=== PATIENT | female | born 1930 | race Caucasian/White ===

== ENCOUNTER 2018-10-15 07:55 | Inpatient (IN) | payer MEDICARE, MEDICAID ==
[2018-10-15] VITALS (8 sets, daily range): BP systolic 119–165; BP diastolic 47–105
[~2018-10-15] VITALS: Ht 165.1 cm; Wt 95.3 kg
[2018-10-15] MEDS ORDERED: Isovue-300 100ml vial INJ PRN (08:15)
[2018-10-15 08:37] LABS: APPEARANCE,URINE CLEAR; BILIRUBIN, URINE NEGATIVE (NEGATIVE); COLOR,URINE PALE YELLOW; GLUCOSE, URINE (UA) NEGATIVE (NEGATIVE); KETONES,URINE NEGATIVE (NEGATIVE); LEUKOCYTE ESTERASE ,URINE NEGATIVE (NEGATIVE); NITRITE,URINE NEGATIVE (NEGATIVE); PH,URINE 7 (4.5-8.0); PROTEIN,URINE NEGATIVE (NEGATIVE); UROBILINOGEN,URINE NORMAL MG/DL (0.0-1.0)
[2018-10-15 08:42] LABS: BASOPHILS % (AUTO) 1.5 % (0.0-2.0); EOSINOPHILS % (AUTO) 1.9 % (0.0-3.0); HEMATOCRIT 38.3 % (37.0-47.0); HEMOGLOBIN 12.8 G/DL (12.0-16.0); LYMPHOCYTES % (AUTO) 42.5 % (20.0-45.0); MEAN CORPUSCULAR VOLUME 92 FL (80-99); MONOCYTES % (AUTO) 6.7 % (1.0-10.0); NEUTROPHILS % (AUTO) 47.4 % (45.0-75.0); PLATELET COUNT 210 K/UL (150-450); RED BLOOD COUNT 4.16 M/UL (4.20-5.40); RED CELL DISTRIBUTION WIDTH 11.9 % (11.6-14.8); WHITE BLOOD COUNT 5.1 K/UL (4.8-10.8)
[2018-10-15 09:04] LABS: ALANINE AMINOTRANSFERASE 44 U/L (12-78); ALBUMIN 3.7 G/DL (3.4-5.0); ALBUMIN/GLOBULIN RATIO 0.8 (1.0-2.7); ALKALINE PHOSPHATASE 102 U/L (46-116); ANION GAP 5 mmol/L (5-15); BILIRUBIN,TOTAL 0.5 MG/DL (0.2-1.0); BLOOD UREA NITROGEN 17 mg/dL (7-18); CALCIUM 10.5 MG/DL (8.5-10.1); CARBON DIOXIDE 33 MMOL/L (21-32); CHLORIDE 98 MMOL/L (98-107); POTASSIUM 3.9 MMOL/L (3.5-5.1); SODIUM 136 MMOL/L (136-145)
[2018-10-15 09:13] LABS: ASPARTATE AMINO TRANSFERASE 42 U/L (15-37)
[2018-10-15] MEDS ORDERED: COLCRYS0.6 M1 PO (09:18)
[2018-10-15] MEDS ORDERED: LOSARTAN POTASS50 MG ORAL (09:18)
[2018-10-15] MEDS ORDERED: BUSPIRONE HCL10 M1 ORAL (09:18)
[2018-10-15] MEDS ORDERED: ALLOPURINOL100 M1 ORAL (09:18)
[2018-10-15] MEDS ORDERED: AMLODIPINE BESYL5 MG ORAL (09:18)
[2018-10-15] MEDS ORDERED: FUROSEMIDE20 M1 ORAL (09:18)
[2018-10-15] MEDS ORDERED: VOLTAREN100 G1 TP (09:18)
[2018-10-15] MEDS ORDERED: POTASSIUM CHLO10 ME3 ORAL (09:18)
[2018-10-15] MEDS ORDERED: KLONOPIN0.5 MG ORAL (09:18)
[2018-10-15] MEDS ORDERED: ASPIRIN81 MG ORAL (09:18)
[2018-10-15] MEDS ORDERED: ESCITALOPRAM OX10 MG ORAL (09:18)
[2018-10-15] MEDS ORDERED: CHLORTHALIDONE25 MG ORAL (09:18)
[2018-10-15] MEDS ORDERED: TRAMADOL HCL50 MG ORAL (09:18)
[2018-10-15] MEDS ORDERED: DEXILANT60 MG ORAL (09:18)
[2018-10-15] MEDS ORDERED: ZOCOR20 M1 ORAL (09:18)
[2018-10-15] MEDS ORDERED: LEVOTHYROXINE75 MCG ORAL (09:18)
[2018-10-15] MEDS ORDERED: CATAPRES0.1 MG ORAL (09:18)
[2018-10-15] MEDS ORDERED: MECLIZINE HCL25 MG ORAL (09:18)
--- NOTE | 2018-10-15 10:08 | Diagnostic Imaging Report ---
Indication: Abdominal pain Technique: CT of the abdomen and pelvis utilizing automated exposure control with intravenous contrast. Venous scanning performed. Axial, sagittal and coronal reformats presented. CT dose: Total DLP 1014.15 mGycm; CTDI vol 17.93 mGy Comparison: None Findings: Dependent atelectasis noted in the lung bases. Heart appears enlarged. No pericardial effusion is identified. There are aortic valvular calcifications. Slight asymmetry of the partially visualized breast tissue, more pronounced on the right with approximately 8mm rounded hyperdense focus in the right breast (image #12). Liver is normal in size and contour. There is cholelithiasis. No gallbladder wall thickening or CT evident gallstones are identified. No pericholecystic inflammatory changes. No biliary ductal dilatation. Spleen, adrenal glands and pancreas unremarkable. Kidneys are symmetric in size. Nonspecific very mild perinephric stranding is noted. A subcentimeter low-attenuation lesion is noted in the mid pole the left kidney most likely representing a cyst however lesion is too small for definitive characterization. There is no hydronephrosis or urinary tract stone bilaterally. Bladder is unremarkable. Patient is status post hysterectomy. There is no free intraperitoneal air or fluid. There is no evidence of bowel obstruction. There is a small hiatal hernia. Apparent thickening of the wall of the stomach may related to underdistention versus gastritis. There is colonic diverticulosis without evidence to suggest acute diverticulitis. The abdominal aorta is normal in caliber with scattered atherosclerotic calcification. There is a small fat-containing umbilical hernia. There is no pathologically enlarged lymphadenopathy. A small fat-containing left inguinal hernia is also noted. There are multilevel degenerative changes of the thoracolumbar spine with vacuum disc phenomenon at L4-5 and L5-S1. There is grade 1 anterolisthesis of L5 on S1 which is likely chronic and degenerative in etiology. IMPRESSION: * Cholelithiasis without CT evidence to suggest acute cholecystitis. Further evaluation with ultrasound or HIDA can be as clinically indicated. * Apparent thickening of the wall of stomach which may be related to underdistention versus gastritis. * Small hiatal hernia. * Colonic diverticulosis without evidence of acute diverticulitis. * No evidence of bowel obstruction. * Small fat-containing umbilical and left inguinal hernias. * Prominence of right-sided breast tissue with a approximately 8mm rounded dense lesion in the right breast. Correlation with breast exam recommended. Further imaging with mammography recommended as clinically indicated. The CT scanner at [facility] is accredited by the [employer] and the scans are performed using protocols designed to limit radiation exposure to as low as reasonably achievable to attain images of sufficient resolution adequate for diagnostic evaluation.
--- NOTE | 2018-10-15 10:52 | Emergency Room Report ---
History of Present Illness General Chief Complaint: Abdominal Pain Source: Patient, Caregiver Present Illness HPI The patient is accompanied by caregiver. History is primarily obtained from the caregiver. The patient has a history of dementia. The patient has a known history of gallstones. She had complained of abdominal pain for the past day in the upper abdomen. There is been no fever or chills. There is been no nausea or vomiting. There is been no dysuria or hematuria. There is no chest pain or short of breath. There are no other complaints. Allergies: Coded Allergies: No Known Allergies (Unverified , 10/15/18) Patient History Past Medical History: see triage record, HTN, other - Hx of gallstones Past Surgical History: hysterectomy Social History: Denies: smoking, alcohol use, drug use Reviewed Nursing Documentation: PMH: Agreed; PSxH: Agreed Nursing Documentation-PMH Past Medical History: No History, Except For Hx Hypertension: Yes Hx Cancer: Yes - hysterectomy Review of Systems All Other Systems: negative except mentioned in HPI Physical Exam Vital Signs Date Time Temp Pulse Resp B/P (MAP) Pulse Ox O2 Delivery O2 Flow Rate FiO2 10/15/18 07:59 97.9 53 23 165/80 99 Room Air Sp02 EP Interpretation: reviewed, normal General Appearance: no apparent distress, alert, GCS 15, non-toxic, obese Head: normocephalic, atraumatic Eyes: bilateral eye normal inspection, bilateral eye PERRL ENT: hearing grossly normal, normal pharynx, no angioedema, normal voice Neck: full range of motion, supple/symm/no masses Respiratory: chest non-tender, lungs clear, normal breath sounds, no respiratory distress, no retraction, no accessory muscle use, speaking full sentences Cardiovascular #1: regular rate, rhythm, no edema Gastrointestinal: normal bowel sounds, soft, non-distended, no guarding, no rebound, tenderness - TTP in the episgastrium Rectal: deferred Musculoskeletal: back normal, normal range of motion, non-tender Neurologic: alert, responsive, motor strength/tone normal, sensory intact, speech normal Psychiatric: mood/affect normal, no suicidal/homicidal ideation Skin: warm/dry, well hydrated, other - See RN skin exam Medical Decision Making Diagnostic Impression: Primary Impression: Abdominal pain Additional Impressions: Breast mass Acute gastritis Gallstones ER Course This patient has a clinical presentation consistent with gastritis and possibly symptomatic cholelithiasis. The location of the pain and history and physical examination is consistent with this. I considered other concerning differentials, to include appendicitis, cholecystitis, pancreatitis, perforated viscus, aortic aneurysm, and pyelonephritis to name a few. However, laboratory workup in combination with medical and surgical history and physical exam makes these unlikely at this time. Also reassuring, CT of the abdomen and pelvis was unremarkable. There were findings that could be gastritis. They were quadrant ultrasound did show gallstones but does not show any evidence of cholecystitis or choledocholithiasis. Laboratory workup is reassuring and unremarkable. Further discussion with the family and this patient has been unable to care for herself in her activities of daily living. The family states that she has ongoing pain and they are unable to care for her further. She is unable to care for her self at this time. She has ongoing gastritis. She is admitted for further evaluation and treatment and may need placement in a half-way facility and sent her acute symptoms are controlled. The patient is admitted for further evaluation and treatment. Laboratory Tests Test 10/15/18 08:23 White Blood Count 5.1 K/UL (4.8-10.8) Red Blood Count 4.16 M/UL (4.20-5.40) L Hemoglobin 12.8 G/DL (12.0-16.0) Hematocrit 38.3 % (37.0-47.0) Mean Corpuscular Volume 92 FL (80-99) Mean Corpuscular Hemoglobin 30.9 PG (27.0-31.0) Mean Corpuscular Hemoglobin Concent 33.5 G/DL (32.0-36.0) Red Cell Distribution Width 11.9 % (11.6-14.8) Platelet Count 210 K/UL (150-450) Mean Platelet Volume 6.7 FL (6.5-10.1) Neutrophils (%) (Auto) 47.4 % (45.0-75.0) Lymphocytes (%) (Auto) 42.5 % (20.0-45.0) Monocytes (%) (Auto) 6.7 % (1.0-10.0) Eosinophils (%) (Auto) 1.9 % (0.0-3.0) Basophils (%) (Auto) 1.5 % (0.0-2.0) Urine Color Pale yellow Urine Appearance Clear Urine pH 7 (4.5-8.0) Urine Specific [place] 1.010 (1.005-1.035) Urine Protein Negative (NEGATIVE) Urine Glucose (UA) Negative (NEGATIVE) Urine Ketones Negative (NEGATIVE) Urine Blood 1+ (NEGATIVE) H Urine Nitrite Negative (NEGATIVE) Urine Bilirubin Negative (NEGATIVE) Urine Urobilinogen Normal MG/DL (0.0-1.0) Urine Leukocyte Esterase Negative (NEGATIVE) Urine RBC 0-2 /HPF (0 - 2) Urine WBC 0-2 /HPF (0 - 2) Urine Squamous Epithelial Cells Moderate /LPF (NONE/OCC) H Urine Bacteria Few /HPF (NONE) Sodium Level 136 MMOL/L (136-145) Potassium Level 3.9 MMOL/L (3.5-5.1) Chloride Level 98 MMOL/L (98-107) Carbon Dioxide Level 33 MMOL/L (21-32) H Anion Gap 5 mmol/L (5-15) Blood Urea Nitrogen 17 mg/dL (7-18) Creatinine 1.0 MG/DL (0.55-1.30) Estimate Glomerular Filtration Rate mL/min (>60) Glucose Level 87 MG/DL (74-106) Calcium Level 10.5 MG/DL (8.5-10.1) H Total Bilirubin 0.5 MG/DL (0.2-1.0) Aspartate Amino Transferase (AST) 42 U/L (15-37) H Alanine Aminotransferase (ALT) 44 U/L (12-78) Alkaline Phosphatase 102 U/L (46-116) Troponin I 0.000 ng/mL (0.000-0.056) Total Protein 8.1 G/DL (6.4-8.2) Albumin 3.7 G/DL (3.4-5.0) Globulin 4.4 g/dL Albumin/Globulin Ratio 0.8 (1.0-2.7) L Lipase 171 U/L (73-393) Laboratory Tests Test 10/15/18 08:23 White Blood Count 5.1 K/UL (4.8-10.8) Red Blood Count 4.16 M/UL (4.20-5.40) L Hemoglobin 12.8 G/DL (12.0-16.0) Hematocrit 38.3 % (37.0-47.0) Mean Corpuscular Volume 92 FL (80-99) Mean Corpuscular Hemoglobin 30.9 PG (27.0-31.0) Mean Corpuscular Hemoglobin Concent 33.5 G/DL (32.0-36.0) Red Cell Distribution Width 11.9 % (11.6-14.8) Platelet Count 210 K/UL (150-450) Mean Platelet Volume 6.7 FL (6.5-10.1) Neutrophils (%) (Auto) 47.4 % (45.0-75.0) Lymphocytes (%) (Auto) 42.5 % (20.0-45.0) Monocytes (%) (Auto) 6.7 % (1.0-10.0) Eosinophils (%) (Auto) 1.9 % (0.0-3.0) Basophils (%) (Auto) 1.5 % (0.0-2.0) Urine Color Pale yellow Urine Appearance Clear Urine pH 7 (4.5-8.0) Urine Specific [place] 1.010 (1.005-1.035) Urine Protein Negative (NEGATIVE) Urine Glucose (UA) Negative (NEGATIVE) Urine Ketones Negative (NEGATIVE) Urine Blood 1+ (NEGATIVE) H Urine Nitrite Negative (NEGATIVE) Urine Bilirubin Negative (NEGATIVE) Urine Urobilinogen Normal MG/DL (0.0-1.0) Urine Leukocyte Esterase Negative (NEGATIVE) Urine RBC 0-2 /HPF (0 - 2) Urine WBC 0-2 /HPF (0 - 2) Urine Squamous Epithelial Cells Moderate /LPF (NONE/OCC) H Urine Bacteria Few /HPF (NONE) Sodium Level 136 MMOL/L (136-145) Potassium Level 3.9 MMOL/L (3.5-5.1) Chloride Level 98 MMOL/L (98-107) Carbon Dioxide Level 33 MMOL/L (21-32) H Anion Gap 5 mmol/L (5-15) Blood Urea Nitrogen 17 mg/dL (7-18) Creatinine 1.0 MG/DL (0.55-1.30) Estimate Glomerular Filtration Rate mL/min (>60) Glucose Level 87 MG/DL (74-106) Calcium Level 10.5 MG/DL (8.5-10.1) H Total Bilirubin 0.5 MG/DL (0.2-1.0) Aspartate Amino Transferase (AST) 42 U/L (15-37) H Alanine Aminotransferase (ALT) 44 U/L (12-78) Alkaline Phosphatase 102 U/L (46-116) Total Protein 8.1 G/DL (6.4-8.2) Albumin 3.7 G/DL (3.4-5.0) Globulin 4.4 g/dL Albumin/Globulin Ratio 0.8 (1.0-2.7) L Lipase 171 U/L (73-393) EKG Diagnostic Results Rate: bradycardiac - S.bradycardia w/ first degree av block. Rhythm: other - S.bradycardia ST Segments: no acute changes Rhythm Strip Diag. Results EP Interpretation: yes Rate: 50's Rhythm: no PVC's, no ectopy, other - S.bradycardia CT/MRI/US Diagnostic Results CT/MRI/US Diagnostic Results : Imaging Test Ordered: CT abd/pelvis, US Abdomen Impression * Cholelithiasis without CT evidence to suggest acute cholecystitis. Further evaluation with ultrasound or HIDA can be as clinically indicated. * Apparent thickening of the wall of stomach which may be related to underdistention versus gastritis. * Small hiatal hernia. * Colonic diverticulosis without evidence of acute diverticulitis. * No evidence of bowel obstruction. * Small fat-containing umbilical and left inguinal hernias. * Prominence of right-sided breast tissue with a approximately 8mm rounded dense lesion in the right breast. Correlation with breast exam recommended. Further imaging with mammography recommended as clinically indicated. US abdomen: Cholelithiasis without any evidence of choledocho-cholelithiasis or cholecystitis. See official report in the electronic medical record. Last Vital Signs Date Time Temp Pulse Resp B/P (MAP) Pulse Ox O2 Delivery O2 Flow Rate FiO2 10/15/18 08:43 97.9 55 23 165/80 99 Room Air Disposition: ADMITTED INPATIENT Condition: Stable Referrals: NOT CHOSEN IPA/,REFERRING (PCP) Sera Woods DO Oct 15, 2018 10:52
--- NOTE | 2018-10-15 12:00 | Diagnostic Imaging Report ---
Indication: Abdominal pain Technique: Multiplanar grayscale and duplex Doppler imaging of the abdomen Comparison: Concurrent CT of the abdomen and pelvis Findings: Imaged portions of the pancreas grossly unremarkable. Liver is normal in size. Echogenicity is homogeneous. No focal hepatic mass lesion is appreciated sonographically. Hepatic contour appears smooth. The portal vein appears patent with normal direction of flow. There is cholelithiasis. Gallbladder is not distended. Gallbladder wall is not thickened. There is no pericholecystic fluid. Sonographic Obrien sign reported as negative. No intrahepatic biliary ductal dilatation is appreciated. The common bile duct is normal in caliber measuring 5 mm in diameter. Kidneys demonstrate normal echogenicity. There is no hydronephrosis or sonographically appreciable renal stone bilaterally. A subcentimeter anechoic structures noted in the lower pole the left kidney most likely representing a simple cyst. There is lobulated contour of the bilateral kidneys. Spleen is normal in size. Imaged portions of the abdominal aorta and IVC normal caliber. No ascites is demonstrated. IMPRESSION: Cholelithiasis. No sonographic evidence to suggest an acute cholecystitis. Sonographic Obrien sign reported as negative.
--- NOTE | 2018-10-15 14:50 | History & Physical ---
History and Physical History & Physicial HP dictated # [id number] Vipul Alford MD Oct 15, 2018 14:50
[2018-10-15] MEDS: BusPIRone 5mg Tab ORAL SCH (15:00)
[2018-10-15] MEDS: Allopurinol 100mg Tab ORAL SCH (15:44)
[2018-10-15] MEDS: Aspirin Baby 81mg ORAL SCH (15:45)
[2018-10-15] MEDS: clonazePAM 0.5mg tab ORAL SCH (15:45)
[2018-10-15] MEDS: Heparin 5000 units/ml inj SUBQ SCH (15:47)
[2018-10-15] MEDS ORDERED: Milk of Magnesia 30ml Ud ORAL PRN (16:30)
--- NOTE | 2018-10-15 17:30 | History and Physical Report ---
DATE OF ADMISSION: 10/15/2018 CHIEF COMPLAINT: Abdominal pain. HISTORY OF PRESENT ILLNESS: This is an 88-year-old [place] female, who does not speak German. History was obtained through a teacher asst. The patient apparently was complaining of abdominal pain. She was brought into the emergency room. She was found to have some gallstones with no evidence of cholecystitis. She was admitted for further workup. The patient has a history of dementia and poor historian. PAST MEDICAL HISTORY: Includes also history of hypertension. The patient is status post hysterectomy. Previous history of knee surgeries. MEDICATIONS: Reviewed in the EMR. SOCIAL HISTORY: No history of smoking or alcohol abuse. ALLERGIES: No known drug allergies. REVIEW OF SYSTEMS: Unobtainable. PHYSICAL EXAMINATION: GENERAL: The patient is an elderly female, in no acute distress. VITAL SIGNS: Blood pressure is 119/67, pulse 53, temperature 97.9, and respirations 23. HEENT: Neches conjunctivae. Anicteric sclerae. NECK: Supple. LUNGS: Clear to auscultation. HEART: S1, S2 without murmurs or rubs. ABDOMEN: Soft and nontender. EXTREMITIES: Bilateral edema. The patient has scars over the both knees from previous knee surgeries. LABORATORY FINDINGS: CBC shows a WBC of 5100, hematocrit 38.3, hemoglobin 12.8, and platelets 210,000. Chemistry panel shows a serum sodium 136, potassium 3.9, chloride 98, CO2 33, BUN 17, and creatinine 1. Calcium is 10.5. Troponin was negative. Lipase is 171. UA was negative. ASSESSMENT: This is an 88-year-old [place] female with history of dementia, who is admitted with abdominal pain, possibility of gallstone colic. The patient had also some elevated blood pressure this morning. PLAN: The patient will be admitted to med/surg. I started the patient on Protonix. If the pain continues further evaluation will be made by the HIDA scan to see if the patient has acute cholecystitis in which case the gallbladder has to be removed. Blood pressure medication will be adjusted. Vipul Alford M.D. DR: ALFONSO JOB#: [id number] CC:
[2018-10-16] VITALS: BP 103/53
[2018-10-16] MEDS: clonazePAM 0.5mg tab ORAL SCH ×4 (00:44→17:38)
[2018-10-16 04:00] VITALS: BP 141/82
[2018-10-16 08:00] VITALS: BP 137/63
[2018-10-16] MEDS: Allopurinol 100mg Tab ORAL SCH (09:06)
[2018-10-16] MEDS: BusPIRone 5mg Tab ORAL SCH (09:06)
[2018-10-16] MEDS: Losartan 50mg tab ORAL SCH (09:07)
[2018-10-16] MEDS: Aspirin Baby 81mg ORAL SCH (09:07)
[2018-10-16] MEDS: Heparin 5000 units/ml inj SUBQ SCH ×2 (09:08→21:28)
[2018-10-16 12:00] VITALS: BP 145/73
--- NOTE | 2018-10-16 13:37 | General Progress Note ---
Assessment/Plan Problem List: (1) Biliary colic ICD Codes: K80.50 - Calculus of bile duct without cholangitis or cholecystitis without obstruction SNOMED: 42143909 (2) Gallstones ICD Codes: K80.20 - Calculus of gallbladder without cholecystitis without obstruction SNOMED: 934081964 (3) Abdominal pain ICD Codes: R10.9 - Unspecified abdominal pain SNOMED: 42768498 (4) Acute gastritis ICD Codes: K29.00 - Acute gastritis without bleeding SNOMED: 87166354 (5) HTN (hypertension) ICD Codes: I10 - Essential (primary) hypertension SNOMED: 01195321 (6) Dementia ICD Codes: F03.90 - Unspecified dementia without behavioral disturbance SNOMED: 12132536 Plan: Continue with Protonix. Watch blood pressure closely. Follow labs Physical therapy Transfer to detention facility once stable Subjective Allergies: Coded Allergies: No Known Allergies (Unverified , 10/15/18) Subjective Patient is feeling better Objective Last 24 Hour Vital Signs Date Time Temp Pulse Resp B/P (MAP) Pulse Ox O2 Delivery O2 Flow Rate FiO2 10/16/18 12:00 98.1 58 17 145/73 (97) 98 10/16/18 09:07 137/63 10/16/18 09:07 64 137/63 10/16/18 09:00 Room Air 10/16/18 08:00 97.6 64 17 137/63 (87) 98 10/16/18 04:00 97.3 60 18 141/82 (101) 94 10/16/18 00:00 97.6 62 18 103/53 (70) 95 10/15/18 21:00 Room Air 10/15/18 20:00 97.1 60 18 153/105 (121) 95 10/15/18 18:00 58 146/73 (97) 10/15/18 16:00 99.1 56 17 163/78 (106) 99 10/15/18 15:46 58 165/92 10/15/18 14:45 Room Air 10/15/18 14:10 97.5 58 20 165/92 (116) 95 10/15/18 13:42 97.9 53 23 119/67 99 Room Air Intake and Output 10/15/18 10/16/18 19:00 07:00 Intake Total 500 ml 480 ml Balance 500 ml 480 ml Intake Oral 500 ml 480 ml # Voids 1 3 Height (Feet): 5 Height (Inches): 5.00 Weight (Pounds): 210 Cardiovascular: normal rate Respiratory/Chest: lungs clear Abdomen: soft Vipul lAford MD Oct 16, 2018 13:37
--- NOTE | 2018-10-16 13:39 | Cardiology Report ---
APPROVED REPORT EKG Measurement Heart [id number] VA 224P [id number] Sinus bradycardia with 1st degree AV block Otherwise normal ECG
[2018-10-16 16:00] VITALS: BP 147/70
[2018-10-16 20:00] VITALS: BP 118/55
[2018-10-17] VITALS: BP 107/64
[2018-10-17] MEDS: clonazePAM 0.5mg tab ORAL SCH ×4 (00:26→18:02)
[2018-10-17 04:00] VITALS: BP 106/55
[2018-10-17 08:00] VITALS: BP 140/90
[2018-10-17] MEDS: Allopurinol 100mg Tab ORAL SCH (08:28)
[2018-10-17] MEDS: Aspirin Baby 81mg ORAL SCH (08:28)
[2018-10-17] MEDS: Losartan 50mg tab ORAL SCH (08:29)
[2018-10-17] MEDS: BusPIRone 5mg Tab ORAL SCH (08:29)
[2018-10-17] MEDS: Heparin 5000 units/ml inj SUBQ SCH ×2 (08:32→20:37)
[2018-10-17 12:00] VITALS: BP 156/91
--- NOTE | 2018-10-17 15:25 | General Progress Note ---
Assessment/Plan Problem List: (1) Biliary colic ICD Codes: K80.50 - Calculus of bile duct without cholangitis or cholecystitis without obstruction SNOMED: 80792117 (2) Gallstones ICD Codes: K80.20 - Calculus of gallbladder without cholecystitis without obstruction SNOMED: 703586568 (3) Abdominal pain ICD Codes: R10.9 - Unspecified abdominal pain SNOMED: 50745379 (4) Acute gastritis ICD Codes: K29.00 - Acute gastritis without bleeding SNOMED: 02540875 (5) HTN (hypertension) ICD Codes: I10 - Essential (primary) hypertension SNOMED: 67407860 (6) Dementia ICD Codes: F03.90 - Unspecified dementia without behavioral disturbance SNOMED: 61700789 Plan: watch BP cont with current meds DC tomorrow Subjective Allergies: Coded Allergies: No Known Allergies (Unverified , 10/15/18) Subjective Patient is feeling better Objective Last 24 Hour Vital Signs Date Time Temp Pulse Resp B/P (MAP) Pulse Ox O2 Delivery O2 Flow Rate FiO2 10/17/18 12:00 97.6 64 20 156/91 (112) 95 10/17/18 09:00 Room Air 10/17/18 08:29 140/90 10/17/18 08:28 65 140/90 10/17/18 08:00 98.2 65 20 140/90 (107) 96 10/17/18 04:00 98.5 59 21 106/55 (72) 94 10/17/18 00:00 98.6 68 17 107/64 (78) 98 10/16/18 21:00 Room Air 10/16/18 20:00 97.3 63 18 118/55 (76) 95 10/16/18 16:00 98.3 59 17 147/70 (95) 98 Intake and Output 10/16/18 10/17/18 19:00 07:00 Intake Total 2000 ml 240 ml Balance 2000 ml 240 ml Intake Oral 2000 ml 240 ml # Voids 4 3 Height (Feet): 5 Height (Inches): 5.00 Weight (Pounds): 210 Cardiovascular: normal rate Respiratory/Chest: lungs clear Abdomen: soft Edema: 2+ Generalized Vipul Alford MD Oct 17, 2018 15:25
[2018-10-17 16:00] VITALS: BP 121/61
[2018-10-17 20:00] VITALS: BP 112/65
[2018-10-18] VITALS: BP 130/68
[2018-10-18] MEDS: clonazePAM 0.5mg tab ORAL SCH ×3 (00:26→12:23)
[2018-10-18 04:00] VITALS: BP 139/74
[2018-10-18 08:00] VITALS: BP 129/67
[2018-10-18] MEDS: Losartan 50mg tab ORAL SCH (08:45)
[2018-10-18] MEDS: BusPIRone 5mg Tab ORAL SCH (08:45)
[2018-10-18] MEDS: Aspirin Baby 81mg ORAL SCH (08:46)
[2018-10-18] MEDS: Allopurinol 100mg Tab ORAL SCH (08:46)
[2018-10-18] MEDS: Heparin 5000 units/ml inj SUBQ SCH (08:47)
--- NOTE | 2018-10-18 10:50 | General Progress Note ---
Assessment/Plan Problem List: (1) Biliary colic ICD Codes: K80.50 - Calculus of bile duct without cholangitis or cholecystitis without obstruction SNOMED: 99150126 (2) Gallstones ICD Codes: K80.20 - Calculus of gallbladder without cholecystitis without obstruction SNOMED: 215400129 (3) Abdominal pain ICD Codes: R10.9 - Unspecified abdominal pain SNOMED: 98554689 (4) Acute gastritis ICD Codes: K29.00 - Acute gastritis without bleeding SNOMED: 16441743 (5) HTN (hypertension) ICD Codes: I10 - Essential (primary) hypertension SNOMED: 04716816 (6) Dementia ICD Codes: F03.90 - Unspecified dementia without behavioral disturbance SNOMED: 92655074 Plan: Dc today Subjective Allergies: Coded Allergies: No Known Allergies (Unverified , 10/15/18) Subjective Patient is feeling better Objective Last 24 Hour Vital Signs Date Time Temp Pulse Resp B/P (MAP) Pulse Ox O2 Delivery O2 Flow Rate FiO2 10/18/18 09:00 Room Air 10/18/18 08:46 66 129/67 10/18/18 08:45 129/67 10/18/18 08:00 98.3 66 18 129/67 (87) 96 10/18/18 04:00 97.9 65 18 139/74 (95) 96 10/18/18 00:00 97.5 66 18 130/68 (88) 95 10/17/18 21:00 Room Air 10/17/18 20:00 96.9 73 20 112/65 (81) 97 10/17/18 16:00 97.2 71 20 121/61 (81) 97 10/17/18 12:00 97.6 64 20 156/91 (112) 95 Intake and Output 10/17/18 10/18/18 18:59 06:59 Intake Total 250 ml 360 ml Output Total 400 ml 500 ml Balance -150 ml -140 ml Intake Oral 250 ml 360 ml Output Urine Total 400 ml 500 ml # Voids 1 # Bowel Movements 1 Height (Feet): 5 Height (Inches): 5.00 Weight (Pounds): 210 Cardiovascular: normal rate Respiratory/Chest: lungs clear Vipul Alford MD Oct 18, 2018 10:50
[2018-10-18] MEDS ORDERED: AMLODIPINE BESYL5 MG ORAL (11:55)
[2018-10-18] MEDS ORDERED: ALLOPURINOL100 M1 ORAL (11:55)
[2018-10-18] MEDS ORDERED: ASPIRIN81 MG ORAL (11:56)
[2018-10-18] MEDS ORDERED: CHLORTHALIDONE25 MG ORAL (11:57)
[2018-10-18] MEDS ORDERED: KLONOPIN0.5 MG ORAL (11:57)
[2018-10-18] MEDS ORDERED: BUSPIRONE HCL10 M1 ORAL (11:57)
[2018-10-18] MEDS ORDERED: LEXAPRO10 MG ORAL (11:58)
[2018-10-18] MEDS ORDERED: LEVOTHYROXINE200 MCG ORAL (11:59)
[2018-10-18 12:00] VITALS: BP 119/64
[2018-10-18] MEDS ORDERED: MILK OF MA400 MG/51 ORAL (12:00)
[2018-10-18] MEDS ORDERED: LOSARTAN POTAS100 MG ORAL (12:00)
[2018-10-18] MEDS ORDERED: PANTOPRAZOLE SO40 MG ORAL (12:01)
--- NOTE | 2018-10-19 10:17 | Discharge Summary ---
Discharge Summary Discharge Summary _ DATE OF ADMISSION: 10/15/2018 DATE OF DISCHARGE: 10/18/2018 DISCHARGED BY: Dr. Alford REASON FOR ADMISSION: 88 years old female with past medical history of hypertension, hypothyroidism, history of gallstones , status post hysterectomy, dementia , presented to emergency department accompanied by caregiver. History was primarily was obtained from caregiver. Patient was complaining of upper abdominal pain for 1 day. No reported fevers or chills. No reported nausea and vomiting. No dysuria or hematuria. No chest pain or shortness of breath. Upon evaluation vital signs revealed slightly elevated blood pressure 165/80 . No leukocytosis, stable hemoglobin and hematocrit. Stable electrolytes and renal parameters. Glucose 87, AST 42, ALT 44. Total bilirubin 0.5. Lipase 171. CT of the abdomen and pelvis demonstrated cholelithiasis without CT evidence to suggest acute cholecystitis. Apparent thickening of the wall of the stomach may be related to underdistention versus gastritis. Small hiatal hernia. Colonic diverticulosis without evidence of acute diverticulitis. No evidence of bowel obstruction. Small fat-containing umbilical and left inguinal hernias. Prominence of right-sided breast tissue with a approximately 8mm rounded dense lesion in the right breast. Correlation with breast exam recommended. Further imaging with mammography recommended as clinically indicated. Patient was admitted for further workup. HOSPITAL COURSE: Patient was admitted to medical surgical floor. Abdominal ultrasound revealed cholelithiasis, but no sonographic evidence to suggest acute cholecystitis. Sonographic Obrien sign was reported negative as well. Patient started on the IV hydration and IV Protonix. Clinical presentation was consistent with acute gastritis and symptomatic cholelithiasis. Pain management was addressed, and pain was controlled. Blood pressure was managed with Cozaar, amlodipine and chlorthalidone, and remained stable. Heart rate stable DVT prophylaxis provided. Levothyroxine continued. Bowel regimen instituted. Antiemetic provided as needed. Patient was able to tolerate diet. Pain resolved. Patient clinically stabilized and was transferred to the long-term facility for continuation of care. Recommended mammogram as outpatient due to findings of CT scan. FINAL DIAGNOSES: Biliary colic Gallstones Acute gastritis Hypertension Dementia DISCHARGE MEDICATIONS: See Medication Reconciliation list. DISCHARGE INSTRUCTIONS: Patient was discharged to the long-term facility. Follow up with medical doctor at the facility. I have been assigned to dictate discharge summary for this account. I was not involved in the patient's management. Mindy Zurita NP Oct 19, 2018 10:17
== END 2018-10-18 13:00 | DRG 446 ==
LOC: EMR 08:16 → 3E 12:45 → EDBEDREQ 12:56
DX: K80.20 Calculus of gallbladder without cholecystitis without obstruction (principal); F03.90 Unspecified dementia, unspecified severity, without behavioral disturbance, psychotic disturbance, mood disturbance, and anxiety; I10 Essential (primary) hypertension; E03.9 Hypothyroidism, unspecified; K29.00 Acute gastritis without bleeding
CPT/HCPCS: 36415; 74177; 76700; 80053; 81003; 83690; 84484; 85025; 93005; 96374; 99285